=== PATIENT | male | born 1970 | race Hispanic/Latino ===

== ENCOUNTER 2021-09-09 00:18 | Day surgery (SDC) | payer BC, SELFPAY ==
[2021-08-20 14:05] VITALS: BMI 32.5
[2021-09-09 07:18] VITALS: BP 149/89; PULSE 68; RESP 18; TEMP 36.5; O2SAT 100
[2021-09-09] MEDS: LACTATED RINGERS 1,000 ML 150 ML IV CONT (07:28)
--- NOTE | 2021-09-09 08:08 | P.PNAN_ITS ---
Anes - Initial Pre Proc Eval Procedure: Operation Date: 09/09/21 08:30 Proposed Procedures p Screening Colonoscopy - Warner Zurita MD Date/Time: 09/09/21 08:08 Surgeon: Warner Zurita MD Pre Op Diagnosis: neoplasm screening Patient Data Age: 51 Gender: M Height: 1.83 m Weight: 109.4 kg Last Vital Signs Temp 97.7 F 09/09/21 07:18 Pulse 68 09/09/21 07:18 Resp 18 09/09/21 07:18 BP 149/89 H 09/09/21 07:18 Pulse Ox 100 09/09/21 07:18 Allergies Allergy/AdvReac Type Severity Reaction Status Date / Time No Known Allergies Allergy Verified 09/09/21 07:17 Home Medications Medication Instructions Recorded Confirmed Type tadalafil 20 mg tablet See Rx Instructions .ROUTE 12/17/20 08/20/21 Rx .COMPLEX #10 tablet Patient hx anesthesia problems: none Family hx anesthesia problems: none Results Review: All pre-operative results and documents have been reviewed as part of the pre-operative evaluation. [facility] Past Medical History Medical History History of 2019 novel coronavirus disease (COVID-19) Family History Family History Mother Patient's mother is in good health Father Patient's father is in good health Acute myocardial infarction Other Family history of malignant neoplasm Social History Social History Smoking status: Never smoker Smokeless tobacco user: chewing tobacco Second hand tobacco smoke exposure: No Smoking end date: 09/05/10 Alcohol intake: current Drinks per week: 7 Alcohol use details: beer, vodka Substance use: current Substance use type: marijuana Living arrangements: with family Spiritual care concerns: No Anes - Eval Final PreProcedure Day of Procedure 09/09/21 08:08 Patient weight: obese Heart: regular rate and rhythm Lungs: clear to auscultation Airway: Mallampati scale class II Neurological: alert and oriented Last oral intake: >/= 8 hours ASA classification: II Emergent: no Anesthetic plan: proceed Anesthesia type and monitoring: general GIVS and standard monitoring Results Review: All pre-operative results and documents have been reviewed as part of the pre-operative evaluation. Informed Consent: The patient's anesthetic plan and its attendant risks and benefits were discussed with the patient/family/POA. Questions were solicited and answers provided to the satisfaction of the patient/family/POA.
--- NOTE | 2021-09-09 08:28 | PM.HPGS ---
History of Present Illness History of Present Illness Consent: Risks, benefits, and alternatives have been discussed and questions answered. Patient agrees to proceed with procedure. Chief complaint: neoplasm screening Narrative: Chemo Osborn is a 51 year old male here for first screening colonoscopy Review of Systems Constitutional: Constitutional: Denies headache(s) and Denies weakness Eyes: Eyes: Denies blurry vision ENT: Reports Normal hearing present, Denies headache(s) and Denies neck pain Cardiovascular: Cardiovascular: Denies chest pain and Denies dyspnea Respiratory: Respiratory: Denies dyspnea Gastrointestinal: Gastrointestinal: Reports no additional gastrointestinal complaints Genitourinary: Genitourinary: Denies dysuria Musculoskeletal: Musculoskeletal: Denies neck pain Integumentary/Breasts: Skin/Breast: Denies dry skin Neurologic: Reports Normal hearing present, Denies headache(s) and Denies weakness Psychiatric: Psychiatric: Denies anxiety Endocrine: Endocrine: Denies change in body appearance Hematologic/Lymphatic: Hematologic/Lymphatic: Denies easy bleeding Allergic/Immunologic: Allergic/Immunologic: Denies urticaria PMF Past Medical History Medical History (Updated 09/09/21 @ 08:28 by Warner Zurita MD) Colon cancer screening History of 2019 novel coronavirus disease (COVID-19) Family History Family History Mother Patient's mother is in good health Father Patient's father is in good health Acute myocardial infarction Other Family history of malignant neoplasm Social History Social History Smoking status: Never smoker Smokeless tobacco user: chewing tobacco Second hand tobacco smoke exposure: No Smoking end date: 09/05/10 Alcohol intake: current Drinks per week: 7 Alcohol use details: beer, vodka Substance use: current Substance use type: marijuana Living arrangements: with family Spiritual care concerns: No Meds Home Medications and Allergies Home Medications Medication Instructions Recorded Confirmed Type tadalafil 20 mg tablet See Rx Instructions .ROUTE 12/17/20 08/20/21 Rx .COMPLEX #10 tablet Allergies Allergy/AdvReac Type Severity Reaction Status Date / Time No Known Allergies Allergy Verified 09/09/21 07:17 Vital Signs Vital Signs - 24 hr 09/09/21 07:18 Temperature 97.7 F Pulse Rate 68 Respiratory Rate 18 Blood Pressure 149/89 H Pulse Oximetry 100 Exam Const: General: comfortable and no acute distress HENMT: General nose exam: Normal nares present Eyes: General: appearance normal, both eyes and all related structures Neck: Neck: no JVD Resp: Auscultation: clear to auscultation bilaterally Cardio: Rate: regular rate Rhythm: regular rhythm GI: Inspection: non-distended GI Palp: Yes Soft to palpation Skin: General skin exam: normal color Neuro: General: gait normal Speech: normal speech Extrem: General: normal to inspection Psych: Mental Status: mental status grossly normal Assessment and Plan Assessment and plan (1) Colon cancer screening: Code(s): Z12.11 - Encounter for screening for malignant neoplasm of colon Status: Acute Assessment and Plan: colonoscopy
[2021-09-09 08:51] VITALS: BP 101/69; PULSE 66; RESP 19; O2SAT 98
[2021-09-09 09:01] VITALS: BP 118/77; PULSE 53; RESP 16; O2SAT 100
[2021-09-09 09:11] VITALS: BP 111/81; PULSE 54; RESP 17; O2SAT 98
== END 2021-09-09 09:20 | disposition home or self-care (01) ==
PROVIDERS: PCP Internal Medicine; Visit Provider Internal Medicine Gastroenterology
PROC: 0DJD8ZZ Inspection of Lower Intestinal Tract, Via Natural or Artificial Opening Endoscopic (ICD-10-PCS; CPT 45378; principal; 2021-09-09 08:30)
DX: Z12.11 Encounter for screening for malignant neoplasm of colon (principal); D12.2 Benign neoplasm of ascending colon; K64.8 Other hemorrhoids; Z86.16 Personal history of COVID-19; Z87.891 Personal history of nicotine dependence; F12.90 Cannabis use, unspecified, uncomplicated; E66.9 Obesity, unspecified; Z68.32 Body mass index [BMI] 32.0-32.9, adult
CPT/HCPCS: 45385; 88305; J2704; J7120

== ENCOUNTER 2022-10-14 09:05 | Outpatient (CLI) | payer BC, SELFPAY ==
[2022-10-14 18:59] LABS: Alanine Aminotransferase 32 U/L (6-50); Albumin Level 4.6 g/dL (3.5-5.1); Alkaline Phosphatase 71 U/L (38-126); Anion Gap 7 mmol/L (8-16); Aspartate Amino Transferase 38 U/L (17-59); Blood Urea Nitrogen 14 mg/dL (9-20); Carbon Dioxide 28 mmol/L (22-30); Chloride 106 mmol/L (98-107); Cholesterol 204 mg/dL (0-200); Estimated Glomerular Filt Rate > 60; Glucose 86 mg/dL (65-110); HDL Direct 65 mg/dL; Sodium 141 mmol/L (137-145); Triglycerides 61 mg/dL (<150)
[2022-10-14 19:11] LABS: LDL Cholesterol Direct 101 mg/dL
[2022-10-14 19:30] LABS: Prostate Specific Antigen 4.8 ng/mL (< OR = 4.0)
== END 2022-10-14 09:06 | disposition home or self-care (01) ==
LOC: ANHGOSHLAB 09:07
PROVIDERS: PCP Family Medicine; Visit Provider Family Medicine
DX: E78.5 Hyperlipidemia, unspecified (principal); Z13.228 Encounter for screening for other metabolic disorders; Z12.5 Encounter for screening for malignant neoplasm of prostate
CPT/HCPCS: 36415; 80053; 80061; 84153; G0103

== ENCOUNTER 2023-11-17 08:44 | Outpatient (CLI) | payer BC, SELFPAY ==
[2023-11-17 12:57] LABS: Alanine Aminotransferase 23 U/L (6-50); Albumin Level 4.1 g/dL (3.5-5.1); Alkaline Phosphatase 65 U/L (38-126); Anion Gap 4 mmol/L (8-16); Aspartate Amino Transferase 51 U/L (17-59); Blood Urea Nitrogen 18 mg/dL (9-20); Calcium 8.8 mg/dL (8.4-10.2); Carbon Dioxide 28 mmol/L (22-30); Chloride 106 mmol/L (98-107); Cholesterol 183 mg/dL (0-200); Estimated Glomerular Filt Rate > 60; Glucose 88 mg/dL (65-110); HDL Direct 53 mg/dL; Potassium 4.2 mmol/L (3.4-5.0); Sodium 138 mmol/L (137-145); Triglycerides 86 mg/dL (<150)
[2023-11-17 13:08] LABS: LDL Cholesterol Direct 100 mg/dL
[2023-11-17 13:28] LABS: Prostate Specific Antigen 5.9 ng/mL (< OR = 4.0)
== END 2023-11-17 08:45 | disposition home or self-care (01) ==
LOC: ANHGOSHLAB 08:46
PROVIDERS: PCP Family Medicine; Visit Provider Family Medicine
DX: Z12.5 Encounter for screening for malignant neoplasm of prostate (principal); Z13.228 Encounter for screening for other metabolic disorders; Z13.220 Encounter for screening for lipoid disorders
CPT/HCPCS: 36415; 80053; 80061; 84153; G0103

== ENCOUNTER 2024-07-16 10:05 | Outpatient (CLI) | payer BC, SELFPAY ==
--- NOTE | ~2024-07-16 | XR_ITS ---
EXAMINATION: XR shoulder RT min 2V, XR shoulder LT min 2V DATE: 07/16/2024 10:26 INDICATION: Worsening left shoulder pain and recent fall with knee pain to the right shoulder TECHNIQUE: 1. AP internally and externally rotated, AP oblique externally rotated and axial views of the right s homarlon were obtained. 2. AP internally and externally rotated, AP oblique externally rotated and axial views of the left sh che were obtained. COMPARISON: None FINDINGS: Right shoulder: Normal alignment. No fracture. Mild right glenohumeral osteoarthritis. Acromioclavicular joint is no rmal. Soft tissues are unremarkable. This most portion of the right lung are clear. Left shoulder: Normal alignment. No fracture.Mild left glenohumeral and moderate acromioclavicular osteoarthritis. Soft tissues are unremarkable. Visualized portion of the left lung are clear. IMPRESSION: Mild bilateral glenohumeral osteoarthritis, left greater than right and moderate left acromioclavicul ar osteoarthritis. Reviewed, dictated and finalized at location [facility]. MOTIVE PRODUCT SPECIALIST IMPRESSION: Mild bilateral glenohumeral osteoarthritis, left greater than right and moderat e left acromioclavicular osteoarthritis.
== END 2024-07-16 10:06 | disposition home or self-care (01) ==
LOC: ANHIMG 10:09
PROVIDERS: PCP Family Medicine; Visit Provider Family Medicine
DX: M19.011 Primary osteoarthritis, right shoulder (principal); M19.012 Primary osteoarthritis, left shoulder
CPT/HCPCS: 73030

== ENCOUNTER 2024-09-03 13:38 | Outpatient (CLI) | payer BC, SELFPAY ==
--- NOTE | ~2024-09-03 | MR_ITS ---
MRI of the left shoulder Technique: Axial proton-density fat-sat images, coronal proton density fat-sat and T2 fat-sat images, and sagittal T1-weighted and T2 fat-sat images were acquired. Clinical History: Superior glenoid labrum lesion Findings: There is advanced AC joint degenerative change with minimal subacromial spur. Coracoclavicu lar, coracoacromial, and coracohumeral ligaments are intact. Supraspinatus and infraspinatus tendons are intact, without partial or full-thickness tear. Subscapul erasmo tendon is intact. Tendon of long head of the biceps is intact. There is suspected tear near the posterior to the posteroinferior labrum. There is mild degenerative change of the glenohumeral joint, with chondromalacia and minimal inferome dial humeral head osteophyte. Inferior glenohumeral ligament is intact. No significant joint effusion . No fluid distention of the subacromial/subdeltoid bursa. No muscle atrophy or edema. Impression: Advanced AC joint degenerative change. Mild glenohumeral joint degenerative change. Suspected tear at the posterior to posterior inferior labrum. Reviewed, dictated and finalized at [facility]. OGRAPHIC PROCESSOR Impression: Advanced AC joint degenerative change. Mild glenohumeral joint degenerative change. Suspected tear at the posterior to posterior inferior labrum.
== END 2024-09-03 13:39 | disposition home or self-care (01) ==
PROVIDERS: PCP Orthopaedic Surgery; Visit Provider Orthopaedic Surgery
DX: S43.432A Superior glenoid labrum lesion of left shoulder, initial encounter (principal); M19.012 Primary osteoarthritis, left shoulder; X58.XXXA Exposure to other specified factors, initial encounter
CPT/HCPCS: 73221

== ENCOUNTER 2024-11-30 00:53 | Day surgery (SDC) | payer BC, SELFPAY ==
[2024-11-20 14:37] VITALS: BMI 30.6
--- OUTSIDE RECORDS SUMMARY | 2024-11-30 00:56 | XMS_ITS | Clinical Summary ---
Author Organization [facility] Address [address] [place] [address] Care Team Providers Care Soa Architect Name Role Phone Lorenzorenetta Trace ORTEGA Primary Care Provider [phone] Allergies No known active allergies Medications No known medications Social History Tobacco Use Types Packs/Day Years Used Date Smoking Tobacco: Never Assessed Sex and Gender Information Value Date Recorded Sex Assigned at Not on file Legal Sex Male 9:37 AM CDT Gender Identity Not on file Sexual Orientation Not on file Obstetrics History Last Filed Vital Signs Vital Sign Reading Time Taken Comments Blood Pressure 126/67 02/07/2020 1:00 PM CDT Pulse 59 02/07/2020 1:00 PM CDT Temperature 36.4 C (97.6 F) 02/07/2020 9:39 AM CDT Respiratory Rate 15 02/07/2020 1:00 PM CDT Oxygen Saturation 100% 02/07/2020 1:00 PM CDT Inhaled Oxygen Concentration - - Weight 104.3 kg (230 lb) 02/07/2020 9:39 AM CDT Height 182.9 cm (6') 02/07/2020 9:39 AM CDT Body Mass Index 31.19 02/07/2020 9:39 AM CDT Plan of Treatment Health Maintenance Due Date Last Done Comments Colon Cancer Screening-Colonoscopy 1971 Depression Screening 1971 Hepatitis C Screening 1971 Prostate Cancer Screening-PSA 1971 DTaP/Tdap/Td Vaccine (1 - Tdap) 1982 Hepatitis B Screening 1989 Regular Well Visit/Exam 18-64 1989 Zoster Vaccine (1 of 2) 2021 Covid-19 Vaccine (2 - 2023-2 5 season) 2024 04/28/2021 Influenza Vaccine (#1) 2024 Pneumococcal vaccine <65 Aged Out No longer eligible based on patient's age to complete this topic Insurance VULCUN OOS VULCUN OOS Care Teams Soa Architect Relationship Specialty Start Date End Date Trace Varela DO PCP - General Family Medicine 10/26/22
--- OUTSIDE RECORDS SUMMARY | 2024-11-30 00:56 | XMS_ITS | Referral Summary ---
Author Organization [facility] Address [address] [place] [address] Care Team Providers Care Front End Technician Name Role Phone Trace Varela Primary Care Provider [phone] Allergies No known active allergies Medications No known medications Social History Tobacco Use Types Packs/Day Years Used Date Smoking Tobacco: Never Assessed Sex and Gender Information Value Date Recorded Sex Assigned at Not on file Legal Sex Male 9:37 AM CDT Gender Identity Not on file Sexual Orientation Not on file Last Filed Vital Signs Vital Sign Reading [...] 02/07/2020 9:39 AM CDT Plan of Treatment Not on file Insurance [employer] O[employer] Care Teams Front End Technician Relationship Specialty Start Date End Date Trace Varela DO PCP - General Family Medicine 10/26/22
[2024-11-30 11:53] VITALS: BP 135/93; PULSE 69; RESP 19; TEMP 36.2; O2SAT 100
--- NOTE | 2024-11-30 11:53 | PM.HPGS ---
History of Present Illness History of Present Illness Consent: Risks, benefits, and alternatives have been discussed and questions answered. Patient agrees to proceed with procedure. Chief complaint: hx of colon polyps Narrative: Chemo Osborn is a 54 year old male with colon polyp in 2021 Review of Systems Review of Systems: All systems reviewed & are unremarkable except as noted in HPI and below PMFSH Past Medical History Medical History (Updated 11/30/24 @ 11:53 by Warner Zurita MD) Adenomatous colon polyp Colon cancer screening History of 2019 novel coronavirus disease (COVID-19) Family History Family History Mother Patient's mother is in good health Father Patient's father is in good health Acute myocardial infarction Other Family history of malignant neoplasm Social History Social History Social History: caffeine 5 cups coffee daily Smoking status: Never smoker Smokeless tobacco user: chewing tobacco Second hand tobacco smoke exposure: No Smoking end date: 09/05/10 Alcohol intake: current Drinks per week: 5 Alcohol use details: beer, vodka Substance use: current Substance use type: marijuana Lack of Transportation: No Lack of Food: Never True Current Housing: I Have Housing Concerned About Future Housing: No Difficulty Paying Gas/Electric Bills: No Difficulty Paying for Meds: No Currently Unemployed: No Education: Master's Degree or Higher Living arrangements: with family Occupation/Education: occupation Gender identity (if verbalized by the patient): Male Spiritual care concerns: No Meds Home Medications and Allergies Home Medications ?Medication ?Instructions ?Recorded ?Confirmed ?Type tadalafil 20 mg tablet See Rx Instructions .Route 10/26/22 11/14/24 Rx .COMPLEX #10 tabs sildenafil 100 mg tablet 100 mg PO DAILY PRN sexual 10/31/24 11/20/24 Rx activity #30 tabs Allergies Allergy/AdvReac Type Severity Reaction Status Date / Time No Known Allergies Allergy Verified 11/30/24 11:53 Exam Const: General: comfortable and no acute distress HENMT: Face/Nose/Sinus: Normal nares present Eyes: General: appearance normal, both eyes and all related structures Neck: Neck: no JVD Resp: Auscultation: clear to auscultation bilaterally Cardio: Rate: regular rate Rhythm: regular rhythm GI: Inspection: non-distended GI Palp: Yes Soft to palpation Skin: General skin exam: normal color Neuro: General: gait normal Speech: normal speech Extrem: General: normal to inspection Psych: Mental Status: mental status grossly normal Assessment and Plan Assessment and plan (1) Adenomatous colon polyp: Code(s): D12.6 - Benign neoplasm of colon, unspecified Status: Acute Assessment and Plan: colonoscopy
--- NOTE | 2024-11-30 11:55 | P.PNAN_ITS ---
Anes - Initial Pre Proc Eval Procedure: Operation Date: 11/30/24 12:00 Proposed Procedures p Colonoscopy - Warner Zurita MD Date/Time: 11/30/24 11:55 Surgeon: Warner Zurita MD Pre Op Diagnosis: hx of colon polyps Patient Data Age: 54 Gender: M Height: 1.83 m Weight: 102.4 kg Last Vital Signs Temp 36.2 C L 11/30/24 11:53 Pulse 69 11/30/24 11:53 Resp 19 11/30/24 11:53 BP 135/93 H 11/30/24 11:53 Pulse Ox 100 11/30/24 11:53 O2 Del Method Room Air 11/30/24 11:53 Allergies Allergy/AdvReac Type Severity Reaction Status Date / Time No Known Allergies Allergy Verified 11/30/24 11:53 Home Medications ?Medication ?Instructions ?Recorded ?Confirmed ?Type tadalafil 20 mg tablet See Rx Instructions .Route 10/26/22 11/14/24 Rx .COMPLEX #10 tabs sildenafil 100 mg tablet 100 mg PO DAILY PRN sexual 10/31/24 11/20/24 Rx activity #30 tabs Patient hx anesthesia problems: none Family hx anesthesia problems: none Results Review: All pre-operative results and documents have been reviewed as part of the pre- operative evaluation. [facility] Past Medical History Medical History Adenomatous colon polyp Colon cancer screening History of 2019 novel coronavirus disease (COVID-19) Family History Family History Mother Patient's mother is in good health Father Patient's father is in good health Acute myocardial infarction Other Family history of malignant neoplasm Social History Social History Social History: caffeine 5 cups coffee daily Smoking status: Never smoker Smokeless tobacco user: chewing tobacco Second hand tobacco smoke exposure: No Smoking end date: 09/05/10 Alcohol intake: current Drinks per week: 5 Alcohol use details: beer, vodka Substance use: current Substance use type: marijuana Lack of Transportation: No Lack of Food: Never True Current Housing: I Have Housing Concerned About Future Housing: No Difficulty Paying Gas/Electric Bills: No Difficulty Paying for Meds: No Currently Unemployed: No Education: Master's Degree or Higher Living arrangements: with family Occupation/Education: occupation Gender identity (if verbalized by the patient): Male Spiritual care concerns: No Anes - Eval Final PreProcedure Day of Procedure 11/30/24 11:55 Patient weight: obese Heart: regular rate and rhythm Airway: Mallampati scale class II Neurological: alert and oriented Last oral intake: >/= 8 hours ASA classification: III Emergent: no Anesthetic plan: proceed Anesthesia type and monitoring: general GIVS and standard monitoring Results Review: All pre-operative results and documents have been reviewed as part of the pre- operative evaluation. daily marijuana use Informed Consent: The patient's anesthetic plan and its attendant risks and benefits were discussed with the patient/family/POA. Questions were solicited and answers provided to the satisfaction of the patient/family/POA.
--- NOTE | 2024-11-30 11:58 | WPDANESEPPF ---
Anes - Initial Pre Proc Eval Procedure: Operation Date: 11/30/24 12:00 Proposed Procedures p Colonoscopy - Warner Zurita MD Date/Time: 11/30/24 11:58 Surgeon: Warner Zurita MD Pre Op Diagnosis: hx of colon polyps Patient Data Age: 54 Gender: M Height: 1.83 m Weight: 102.4 kg Last Vital Signs Temp 36.2 C L 11/30/24 11:53 Pulse 69 11/30/24 11:53 Resp 19 11/30/24 11:53 BP 135/93 H 11/30/24 11:53 Pulse Ox 100 11/30/24 11:53 O2 Del Method Room Air 11/30/24 11:53 Allergies Allergy/AdvReac Type Severity Reaction Status Date / Time No Known Allergies Allergy Verified 11/30/24 11:53 Home Medications ?Medication ?Instructions ?Recorded ?Confirmed ?Type tadalafil 20 mg tablet See Rx Instructions .Route 10/26/22 11/14/24 Rx .COMPLEX #10 tabs sildenafil 100 mg tablet 100 mg PO DAILY PRN sexual 10/31/24 11/20/24 Rx activity #30 tabs Patient hx anesthesia problems: none Family hx anesthesia problems: none Results Review: All pre-operative results and documents have been reviewed as part of the pre-operative evaluation. [facility] Past Medical History Medical History Adenomatous colon polyp Colon cancer screening History of 2019 novel coronavirus disease (COVID-19) Family History Family History Mother Patient's mother is in good health Father Patient's father is in good health Acute myocardial infarction Other Family history of malignant neoplasm Social History Social History Social History: caffeine 5 cups coffee daily Smoking status: Never smoker Smokeless tobacco user: chewing tobacco Second hand tobacco smoke exposure: No Smoking end date: 09/05/10 Alcohol intake: current Drinks per week: 5 Alcohol use details: beer, vodka Substance use: current Substance use type: marijuana Lack of Transportation: No Lack of Food: Never True Current Housing: I Have Housing Concerned About Future Housing: No Difficulty Paying Gas/Electric Bills: No Difficulty Paying for Meds: No Currently Unemployed: No Education: Master's Degree or Higher Living arrangements: with family Occupation/Education: occupation Gender identity (if verbalized by the patient): Male Spiritual care concerns: No Anes - Eval Final PreProcedure Day of Procedure 11/30/24 11:58 Patient weight: obese Heart: regular rate and rhythm Lungs: clear to auscultation Airway: Mallampati scale class II Neurological: alert and oriented Last oral intake: >/= 8 hours ASA classification: III Emergent: no Anesthetic plan: proceed Anesthesia type and monitoring: general GIVS and standard monitoring Results Review: All pre-operative results and documents have been reviewed as part of the pre-operative evaluation. Informed Consent: The patient's anesthetic plan and its attendant risks and benefits were discussed with the patient/family/POA. Questions were solicited and answers provided to the satisfaction of the patient/family/POA.
[2024-11-30] MEDS: LACTATED RINGERS 1,000 ML 150 ML IV CONT (12:02)
[2024-11-30 12:14] VITALS: BP 147/83; PULSE 69; RESP 20; O2SAT 96
[2024-11-30 12:24] VITALS: BP 122/76; PULSE 61; RESP 17; O2SAT 96
[2024-11-30 12:34] VITALS: BP 130/75; PULSE 60; RESP 18; O2SAT 98
== END 2024-11-30 12:42 | disposition home or self-care (01) ==
PROVIDERS: Referring Provider Internal Medicine Gastroenterology; Visit Provider Internal Medicine Gastroenterology
PROC: 0DJD8ZZ Inspection of Lower Intestinal Tract, Via Natural or Artificial Opening Endoscopic (ICD-10-PCS; CPT 45378; principal; 2024-11-30 12:00)
DX: Z12.11 Encounter for screening for malignant neoplasm of colon (principal); K64.8 Other hemorrhoids; F17.220 Nicotine dependence, chewing tobacco, uncomplicated; F12.90 Cannabis use, unspecified, uncomplicated; E66.9 Obesity, unspecified; Z68.30 Body mass index [BMI] 30.0-30.9, adult; Z86.0100 Personal history of colon polyps, unspecified; Z80.9 Family history of malignant neoplasm, unspecified; Z82.49 Family history of ischemic heart disease and other diseases of the circulatory system
CPT/HCPCS: 45378; J2704; J7120

== ENCOUNTER 2024-12-10 01:28 | Day surgery (SDC) | payer BC, SELFPAY ==
[2024-12-03 14:22] VITALS: BMI 31.2
--- NOTE | 2024-12-03 14:27 | PC.NURSE ---
Report to the Outpatient Waiting Room, entrance under the green pavilion located off [facility], at time _1230_ on date _[id number]_. Planned Procedure Time: _230pm_.? Time changes happen often and if your time is changed the preop area will call you the afternoon before. - You and your visitor will be asked to self-screen and do not enter if you have any COVID symptoms. Please call surgeon if you need to reschedule. - A mask is optional within the hospital at this time. Patients may have clear liquids (water, carbonated beverages, clear teas, apple juice) until 3 hours prior to surgery with a maximum of 20 ounces. - No food from midnight until time of surgery and no smoking, or chewing tobacco (or any form of nicotine). No chewing gum, candy or mints. Take only the following medications with a SIP of water on the morning of surgery: ___None DO NOT STOP ANY OF YOUR OTHER PRESCRIPTION MEDICATIONS PRIOR TO SURGERY EXCEPT THE FOLLOWING Hold all vitamins and supplements for 3 days per anesthesiologist. Medications to discontinue per physician Date to take last dose Please no make-up, nail frisian, hairspray, perfume, deodorant, or body powder the day of surgery.? No jewelry (including any body piercings) or valuables the day of surgery, leave them at home.? Please take a shower or bath the night before, or the morning of, surgery with an antibacterial soap.? Wear comfortable, loose fitting clothing.? - Jewelry must be removed prior to entering the operating room.? Rings and piercings that are not removed may be cut off. - The hospital will not accept responsibility for valuables.? - Please leave all valuables, including medications, at home the day of surgery. If you are going home after surgery, a licensed milk driver must drive you home.? - NO public transportation without another adult if you receive anesthesia. - We recommend that an adult stay with you for 24 hours following discharge. - We also recommend that you do not drive, make important decision, drink alcoholic beverages, or take any drugs that were not prescribed by your health care provider for at least 24 hours after your discharge time. Follow any additional instructions given to you from your surgeon. Telephone instructions given to __David__and asked if any additional questions and then verbalized understanding. Patient advised to call surgeon office or pre surgery nurse liaison [phone] if any additional questions.
[2024-12-10] VITALS (7 sets, daily range): BP systolic 137–160; BP diastolic 66–89; PULSE 58–78; RESP 10–16; TEMP 36.1–36.5; O2SAT 97–100
--- OUTSIDE RECORDS SUMMARY | 2024-12-10 01:31 | XMS_ITS | Clinical Summary ---
Author Organization [facility] Address [address] [place] [address] Care Team Providers Care Beck Tender Name Role Phone Lorenzorenetta Trace ORTEGA Primary Care Provider [phone] Allergies No known active allergies Medications No [...] patient's age to complete this topic Insurance Elimi OOS Elimi OOS Care Teams Beck Tender Relationship Specialty Start Date End Date Trace Varela DO PCP - General Family Medicine 10/26/22
--- OUTSIDE RECORDS SUMMARY | 2024-12-10 01:31 | XMS_ITS | Referral Summary ---
Author Organization [facility] Address [address] [place] [address] Care Team Providers Care Traffic Assistant Name Role Phone Trace Varela Primary Care Provider [phone] Allergies No known active allergies Medications No [...] Plan of Treatment Not on file Insurance Arch[employer] OOS Arch[employer]xa OOS Care Teams Traffic Assistant Relationship Specialty Start Date End Date Trace Varela DO PCP - General Family Medicine 10/26/22
[2024-12-10] MEDS: ACETAMINOPHEN 500 MG TABLET 1000 MG PO (13:30)
[2024-12-10] MEDS: LACTATED RINGERS 1,000 ML 30 ML IV CONT ×2 (13:30→16:56)
[2024-12-10] MEDS: KETOROLAC 15 MG/ML VIAL (*BKC) IV PUSH (13:30)
--- NOTE | 2024-12-10 14:06 | P.PNAN_ITS ---
Anes - Initial Pre Proc Eval Procedure: Operation Date: 12/10/24 14:30 Proposed Procedures p Left Shoulder Arthroscopy, Extensive Debridement, Proceed as Indicated - Fransisco Boyd MD Date/Time: 12/10/24 14:06 Surgeon: Fransisco Boyd MD Pre Op Diagnosis: Left lateral tear Patient Data Age: 54 Gender: M Height: 1.83 m Weight: 104.5 kg Allergies Allergy/AdvReac Type Severity Reaction Status Date / Time No Known Allergies Allergy Verified 12/03/24 14:21 Home Medications ?Medication ?Instructions ?Recorded ?Confirmed ?Type tadalafil 20 mg tablet See Rx Instructions .Route 10/26/22 12/03/24 Rx .COMPLEX #10 tabs sildenafil 100 mg tablet 100 mg PO DAILY PRN sexual 10/31/24 12/03/24 Rx activity #30 tabs oxycodone-acetaminophen 5 mg-325 1 - 2 tablet PO Q4-6H PRN pain 7 12/10/24 Rx mg tablet days #30 tabs Patient hx anesthesia problems: none Family hx anesthesia problems: none Results Review: All pre-operative results and documents have been reviewed as part of the pre- operative evaluation. [facility] Past Medical History Medical History Adenomatous colon polyp Colon cancer screening History of 2019 novel coronavirus disease (COVID-19) Family History Family History Mother Patient's mother is in good health Father Patient's father is in good health Acute myocardial infarction Other Family history of malignant neoplasm Social History Social History Social History: caffeine 5 cups coffee daily Smoking status: Never smoker Smokeless tobacco user: chewing tobacco Second hand tobacco smoke exposure: No Smoking end date: 09/05/10 Alcohol intake: current Drinks per week: 5 Alcohol use details: beer, vodka Substance use: current Substance use type: marijuana Other substance usage details: On occasion Last use: few days ago Lack of Transportation: No Lack of Food: Never True Current Housing: I Have Housing Concerned About Future Housing: No Difficulty Paying Gas/Electric Bills: No Difficulty Paying for Meds: No Currently Unemployed: No Education: Master's Degree or Higher Living arrangements: with family Occupation/Education: occupation Gender identity (if verbalized by the patient): Male Spiritual care concerns: No Anes - Eval Final PreProcedure Day of Procedure 12/10/24 14:06 Patient weight: obese Lungs: normal air movement Airway: Mallampati scale class II Neurological: alert and oriented Last oral intake: >/= 8 hours ASA classification: III Emergent: no Anesthetic plan: proceed Anesthesia type and monitoring: general ETT and standard monitoring Results Review: All pre-operative results and documents have been reviewed as part of the pre- operative evaluation. Obesity BMI 31, pt smokes marijuana most days of the week. Informed Consent: The patient's anesthetic plan and its attendant risks and benefits were discussed with the patient/family/POA. Questions were solicited and answers provided to the satisfaction of the patient/family/POA.
--- NOTE | 2024-12-10 14:45 | WPDHPUPDATE1 ---
History and Physical Update Update Date/Time: 12/10/24 14:45 History and Physical has been reviewed, including an updated exam of the patient. There are NO changes in the patient's condition. Risks, benefits, and alternatives have been discussed and questions answered. Patient agrees to proceed with procedure.
[2024-12-10] MEDS: ceFAZolin 2 GM/D5W 50 ML 2 GM/50 ML BAG IVPB (14:51)
[2024-12-10] MEDS: BUPIVACAINE/EPINEPHRINE 0.5% 30 ML VIAL INFILTRATE (15:28)
[2024-12-10] MEDS: EPINEPHrine HCL INJ 1 MG/ML AMPUL 3 MG IRRIGATION (15:29)
--- NOTE | 2024-12-10 16:58 | W.PM.PROC2 ---
Procedure Note - Detailed Date of Procedure 12/10/24 Pre-op Diagnosis Left shoulder 1. SLAP tear with extensive labral tearing 2. Degenerative arthritis 3. Biceps tendinitis 4. Glenohumeral loose body 9 mm x 8 mm Post-op Diagnosis Same Procedure Performed Left shoulder arthroscopic 1. Biceps tenodesis 2. Extensive debridement including glenoid and humeral chondroplasty, SLAP tear and labral labral debridement, anterior capsule release, subacromial bursectomy 3. Loose body removal 9 mm x 8 mm. Surgeon Fransisco Boyd MD Slip Box Changer Patricia Alaniz PA-C Anesthesia General Indications Persistent mechanical symptoms of the shoulder consistent with intra-articular derangement SLAP lesion with biceps pain. MRI findings of a subscapularis recess loose body. Findings Extensive SLAP tear and circumferential labral tear. Large area of chondral delamination and exposed bone along the inferior humeral head. Mild degenerative changes on the glenoid and some exposed bone posteriorly. Chondroplasty was performed to smooth the unstable flaps. The subscapularis was intact. The supraspinatus had minimal split fraying of the articular side. Mild synovitis with some contracture anteriorly. The rotator interval was debrided; there was excellent space between the subscapularis and the coracoid. The anterior capsule and middle glenohumeral ligament released. Mild bursal inflammation without evidence of subacromial impingement. Description of Procedure Preoperative antibiotics were given. The patient was brought to the operating room. Careful positioning in the beach chair was accomplished. The head neck were carefully positioned. A small bump was placed under the shoulder. The shoulder was prepped and draped in the usual sterile fashion. Examination under anesthesia performed. Mild external rotation loss. No internal rotation loss. Standard posterior and anterior arthroscopic portals were established. There were significant fragments of cartilage floating in the joint which were debrided. A large osteochondral loose body was encountered that measured 9 mm x 8 mm. It was removed with the arthroscopic grasper. The entire labrum was carefully debrided to a stable rim using the arthroscopic shaver, punches posteriorly, and radiofrequency probe. The camera was switched anteriorly and a posterior approach was required to taper the delaminating flap of cartilage along inferior equator the humeral head. Most of the inferior central cartilage was worn to bone. Glenoid was smoothed posteriorly where there was a bit of ridge. Cartilage was soft and irregular but much of it remained intact. Rotator cuff was healthy although there was some mild splitting of the superficial articular side fibers. The subscapularis appeared normal. Release and debridement of the rotator interval exposed the coracoid as it was palpated it was clear that there was very good space between the subscapularis and the coracoid. Attention was turned to the subacromial space. A complete bursectomy was performed. An accessory lateral portal was created. The rotator cuff appeared healthy and there was no obvious evidence for subacromial impingement. Biceps was exposed using the radiofrequency probe. An accessory anterior portal was used for percutaneous approach to create bone tunnels at the intertubercular groove. The tunneling device was used to pass 2 sutures through each tunnel from the greater tuberosity to the biceps. The [employer] Surgical suture Passer was used pass several cerclage and intratendinous sutures with each of the 4 suture limbs. This was tied arthroscopically and the repair appeared quite rios and anatomic. The camera was reintroduced into the joint and the biceps tendon was released from the superior labrum. The arthroscopic instruments were removed. The wounds were closed with interrupted 4-0 Monocryl suture followed by Steri-Strips. A sterile dressing was applied with a sling. The patient was extubated and brought to the recovery room in stable condition. There were no complications. Physician aquatics assistant department head, Patricia Butcher PA-C, required for surgery; including patient positioning, draping, arthroscopic camera operation, maintaining instrument position, suture retrieval, wound closure, and dressing and sling placement. Estimated Blood Loss 10 Drains No Packing No Pathology None sent Complications No immediate complications Condition Stable Disposition PACU [facility] Billing Surgery - Charge Forward: Surgery Billing
[2024-12-10] MEDS: fentaNYL CITRATE INJ (*CRX) 100 MCG/2 ML VIAL 25 MCG IV PUSH ×2 (17:25→17:33)
[2024-12-10] MEDS: oxyCODONE HCL (*CRX) 5 MG TAB IR PO (18:16)
== END 2024-12-10 18:46 | disposition home or self-care (01) ==
PROVIDERS: Visit Provider Orthopaedic Surgery
PROC: (CPT 29805; principal; 2024-12-10 14:30)
DX: S43.432A Superior glenoid labrum lesion of left shoulder, initial encounter (principal); M19.012 Primary osteoarthritis, left shoulder; M75.22 Bicipital tendinitis, left shoulder; M24.012 Loose body in left shoulder; M65.912 Unspecified synovitis and tenosynovitis, left shoulder; X50.0XXA Overexertion from strenuous movement or load, initial encounter; E66.9 Obesity, unspecified; Z68.31 Body mass index [BMI] 31.0-31.9, adult
CPT/HCPCS: 29828; 29823; A9270; J0171; J0330; J0690; J1100; J1171; J1885; J2003; J2250; J2405; J2704; J3010; J7120